=== PATIENT | female | born 1960 | race African-American/Black ===

== ENCOUNTER 2019-06-17 16:15 | Emergency (ER) | payer OTHER ==
[~2019-06-17] VITALS: Ht 177.8 cm; Wt 81.6 kg
[2019-06-17 16:24] VITALS: BP 160/97
[2019-06-17] MEDS ORDERED: SODIUM CHLORIDE 0.9% 1,000 ML IV ONE (16:46)
[2019-06-17] MEDS ORDERED: NALBUPHINE HCL 10 MG/1ml INJECTION IV ONE (17:00)
[2019-06-17] MEDS ORDERED: ONDANSETRON HCL 4 MG/2 ML VIAL IV ONE (17:00)
[2019-06-17] MEDS ORDERED: HYDROmorphone HCL 2 MG/ML VL IV ONE (17:30)
[2019-06-17 18:20] LABS: Basophils # (auto) 0 uL; Basophils % (auto) 0.4 % (0.0-2.0); Eosinophils # (auto) 0 uL; Eosinophils % (auto) 0.5 % (0.0-7.0); Hematocrit 39.9 % (36.0-46.0); Hemoglobin 13.3 g/dL (12.2-16.2); Lymphocytes # (auto) 2.4 uL; Mean Corpuscular Hemoglobin 30.5 pg (28.0-32.0); Mean Corpuscular Hgb Conc. 33.4 g/dL (32.0-36.0); Mean Corpuscular Volume 91.4 fL (80.0-100.0); Monocytes # (auto) 0.6 uL; Monocytes % (auto) 8.3 % (0.0-12.0); Neutrophils # (auto) 4.1 uL; Neutrophils % (auto) 57.8 % (37.0-80.0); Nucleated Red Blood Cells % 0.1 %; Platelet Count (auto) 246 10^3/uL (140-450); Red Blood Cells 4.37 10^6/uL (4.0-5.20); Red Cell Distribution Width 13.4 % (11.8-14.3); White Blood Cell 7.1 10^3/uL (4.4-10.8)
[2019-06-17 18:32] LABS: Albumin 3.7 g/dL (3.4-5.0); Calcium 9.5 mg/dL (8.5-10.1)
[2019-06-17 18:37] LABS: BUN/Creatinine Ratio 13.6; Bilirubin, Total 0.1 mg/dL (0.2-1.0); Total Protein 7.6 g/dL (6.4-8.2)
== END 2019-06-17 19:08 | disposition home or self-care (01) ==
LOC: ER 16:15 → EDBD 16:15 → ER 19:08
DX: G43.909 Migraine, unspecified, not intractable, without status migrainosus (principal); R42 Dizziness and giddiness; E11.9 Type 2 diabetes mellitus without complications; I50.9 Heart failure, unspecified; E78.00 Pure hypercholesterolemia, unspecified; Z90.710 Acquired absence of both cervix and uterus
CPT/HCPCS: 36415; 70450; 80053; 85025; 96361; 96374; 96375; 99284; J1170; J2405; J7030

== ENCOUNTER 2019-11-08 00:15 | Emergency (ER) | payer OTHER ==
[~2019-11-08] VITALS: Ht 172.7 cm; Wt 86.2 kg
[2019-11-08] MEDS ORDERED: cloNIDine HCL 0.1 MG TAB ONE (00:22)
[2019-11-08 00:28] VITALS: BP 198/98
[2019-11-08] MEDS ORDERED: cloNIDine HCL 0.1 MG TAB PO ONE (00:30)
== END 2019-11-08 03:30 | disposition left against medical advice (07) ==
LOC: EDBD 00:15 → ER 00:21
DX: R51 Headache (principal); Z53.21 Procedure and treatment not carried out due to patient leaving prior to being seen by health care provider